=== PATIENT | female | born 1935 | race African-American/Black ===

== ENCOUNTER 2016-06-10 07:18 | Day surgery (SDC) | payer OTHER ==
--- NOTE | ~2016-06-10 | EGD ---
EGD REPORT [facility] [address] [address] NAME: KRYSTIAN CHAPARRO : [birth year] STATUS : REG [facility]#: [id number] AGE: 81 ADM/REG DATE : 06/10/16 MR#: [id number] REPORT SERV DATE: 06/10/16 DICTATED BY: DATE: REPORT STATUS : Draft TRANSCRIBED BY: [employer] DATE: 06/10/16 [facility] Patient Name: Krystian Chaparro Date of : 1935 Attending MD: AGUEDA WALSH MD Procedure Date No Time: 06/10/2016 Procedure: Colonoscopy Indications: Abdominal pain, Weight loss Referring MD: Claire Kunz MD Medicines: Monitored Anesthesia Care Complications: No immediate complications. Procedure: Pre-Anesthesia Assessment: - ASA Grade Assessment: III - A patient with severe systemic disease. After I obtained informed consent, the scope was passed under direct vision. Throughout the procedure, the patient's blood pressure, pulse, and oxygen saturations were monitored continuously. The PCF [id number] was introduced through the anus and advanced to the cecum, identified by appendiceal orifice and ileocecal valve. The colonoscopy was performed without difficulty. The patient tolerated the procedure well. The quality of the bowel preparation was excellent. Findings: The perianal and digital rectal examinations were normal. A flat polyp was found in the recto-sigmoid colon. The polyp was diminutive in size. The polyp was removed with a cold biopsy forceps. Resection and retrieval were complete. No other significant abnormalities were identified in a careful examination of the remainder of the colon. There is no endoscopic evidence of diverticula, inflammation, mass, stenosis, ulcerations or angioectasia in the entire colon. Internal hemorrhoids were found during retroflexion and were Grade I (internal hemorrhoids that do not prolapse). No additional abnormalities were found on retroflexion. Impression: - One diminutive polyp at the recto-sigmoid colon. Resected and retrieved. - Internal hemorrhoids. Recommendation: - Patient has a contact number available for emergencies. The signs and symptoms of potential delayed complications were discussed with the patient. Return to normal activities tomorrow. Written discharge EGD REPORT [address] [place]. [address] NAME: KRYSTIAN CHAPARRO : [birth year] STATUS : REG [facility]#: [id number] AGE: 81 ADM/REG DATE : 06/10/16 MR#: [id number] REPORT SERV DATE: 06/10/16 DICTATED BY: DATE: REPORT STATUS : Draft TRANSCRIBED BY: [employer] DATE: 06/10/16 instructions were provided to the patient. - Return to previous diet. - Discharge patient to home. - Continue present medications. - Await pathology results. - Repeat colonoscopy is not recommended for surveillance. Procedure Code(s): --- Professional --- 50593, Colonoscopy, flexible, proximal to splenic flexure; with biopsy, single or multiple Diagnosis Code(s): --- Professional --- D12.7, Benign neoplasm of rectosigmoid junction K64.0, First degree hemorrhoids R10.9, Unspecified abdominal pain R63.4, Abnormal weight loss CPT copyright 2013 [employer]. All rights reserved. The codes documented in this report are preliminary and upon wallpaper scraper review may be revised to meet current compliance requirements. AGUEDA WALSH MD 06/10/2016 9:33 AM This report has been signed electronically. Number of Addenda: 0 Note Initiated On: 06/10/2016 9:10 AM Scope Withdrawal Time 0 hours 7 minutes 6 seconds [id number] [place] [id number]
[~2016-06-10 07:18] MED LIST: ACET500CAP PO; AMARYL4 PO; ASAB PO; BACDS PO; BENADRYL 50 MG50 MG PO; BYSTOLIC5 MG PO; CAT1 PO; CATAPRES3 TOP; COZ50 PO; FISH-EPA1000 MG PO; GLUCPH PO; HCTZ25B PO; HUMALOGPEN SC; HYZAAR 100/25 T1 TAB PO; KLOR-CON 1010 MEQ PO; KLOR-CON M1010 MEQ PO; L20 PO; LANTUSCART SC; LIPITOR40 PO; MCZ125 PO; MEDROL16B PO; METHOC500B PO; NORV5 PO; NOVOPEN SC; PEP20 PO; PERCOCET1 TA2 PO; PLAVIX PO; PRILO PO; REFRESH OPH SO0.3 ML OPH; SPIRO25 PO; TEKTURNA300 MG PO; TOPXL100 PO; VITAMIN D31000 UNIT PO
== END 2016-06-10 23:59 | disposition home health service (06) ==
LOC: DMU 07:18
PROVIDERS: Internal Medicine Gastroenterology
PROC: 0DBP8ZX Excision of Rectum, Via Natural or Artificial Opening Endoscopic, Diagnostic (ICD-10-PCS; 2016-06-10)
PROC: 0DBN8ZX Excision of Sigmoid Colon, Via Natural or Artificial Opening Endoscopic, Diagnostic (ICD-10-PCS; principal; 2016-06-10 08:30)
DX: K63.5 Polyp of colon (principal); K64.0 First degree hemorrhoids; I10 Essential (primary) hypertension; E78.00 Pure hypercholesterolemia, unspecified; I25.10 Atherosclerotic heart disease of native coronary artery without angina pectoris; I73.9 Peripheral vascular disease, unspecified; G47.30 Sleep apnea, unspecified; E11.9 Type 2 diabetes mellitus without complications; Z88.8 Allergy status to other drugs, medicaments and biological substances
CPT/HCPCS: 82962; 88305